=== PATIENT | male | born 1990 | race Hispanic/Latino ===

== ENCOUNTER 2017-09-11 20:19 | Emergency (ER) | payer SELFPAY ==
[2017-09-11] MEDS ORDERED: HYDROcodone/Acetaminophen 10/325 mg Tablet ONE (21:00)
--- NOTE | 2017-09-11 22:03 | RAD ---
LEFT KNEE FOUR VIEWS: HISTORY: Pain. Swelling. COMPARISON: None. FINDINGS: There is prepatellar soft tissue swelling. No fracture. No malalignment. No joint effusion. Joint spaces are preserved. IMPRESSION: Soft tissue swelling. POS: [facility]
== END 2017-09-11 21:17 | disposition home or self-care (01) ==
LOC: ERS 20:19
DX: M23.92 Unspecified internal derangement of left knee (principal)

== ENCOUNTER 2019-10-12 02:06 | Emergency (ER) | payer SELFPAY ==
[2019-10-12] MEDS ORDERED: Cyclobenzaprine 10 MG TAB ONE ×2 (02:39→02:40)
[2019-10-12 02:46] LABS: Bacteria/HPF None Seen HPF (None Seen); Bilirubin Negative (Negative); Blood, Urine 2+ (Negative); Clarity Clear (Clear); Glucose, Urine (Dipstick) Normal (Negative); Leukocyte Negative Leu/uL (Negative); Nitrite Negative (Negative); Protein, Urine (Dipstick) 20 mg/dL (Neg-Trace); Squamous Epithelial 0-3 HPF (0-3); WBC/HPF 0-3 HPF (0-3)
[2019-10-12] MEDS ORDERED: Ketorolac Tromethamine 60 MG/2 ML VIAL ONE (03:27)
--- NOTE | 2019-10-12 07:35 | RAD ---
XR Chest Pa Lat STANDARD HISTORY: Left upper quadrant pain COMPARISON: None FINDINGS: The heart size is borderline. There is airspace disease in left lung base with accompanying small effusion. IMPRESSION: Left basilar pneumonia.
--- NOTE | 2019-10-12 08:16 | CT ---
PRELIMINARY REPORT/[facility]/AFTER HOURS PROCEDURE CT STONE PROTOCOL: HISTORY: C/O LEFT SIDED ABDOMINAL PAIN COMPARISON: None. FINDINGS: Left basilar opacification, incompletely visualized. No acute abnormality of the liver or pancreas. The spleen is normal. No adrenal nodule. No renal or ureteral stone. No hydronephrosis or hydroureter. Stool within the colon. No bowel obstruction. No mural thickening. No large focal fluid collections. No acute osseous abnormality. IMPRESSION: 1. Incompletely visualized left basilar opacification. May represent left lower lobe pneumonia and/ or pleural effusion, amongst other etiologies. Recommend further evaluation with chest radiograph or chest CT. 2. No acute intra-abdominal pathology. ELECTRONICALLY SIGNED BY: Rudy Caraballo MD Oct 12, 2019 3:51:04 AM [employer] This report is intended for review by the ordering physician only, in accordance of law. If you recei ve this report in error, please call [facility] at [phone]. FINAL REPORT CT ABDOMEN AND PELVIS WITHOUT CONTRAST: I agree with the preliminary report given by Dr. Clifford Caraballo of [facility]. CODE QA POS: [facility]
== END 2019-10-12 04:45 | disposition home or self-care (01) ==
LOC: ERS 02:06
DX: J18.9 Pneumonia, unspecified organism (principal); M54.5 Low back pain; M54.6 Pain in thoracic spine
CPT/HCPCS: 71046; 74176; 81003; 81015; 96372; J1885

== ENCOUNTER 2019-11-03 15:02 | Inpatient (IN) | payer SELFPAY ==
[~2019-11-03 15:02] MED LIST: Iopamidol-370 76% 500 ML 1 ML ONE
--- NOTE | 2019-11-03 15:55 | RAD ---
EXAM: Single view of the chest HISTORY: Cough COMPARISON: 10/12/2019 FINDINGS: Single view of the chest shows a normal sized cardiomediastinal silhouette. There is a mode rate left pleural effusion which appears partially loculated along the left lateral chest wall. Adjacent atelectasis is seen. The bones are unremarkable. IMPRESSION: Left pleural effusion which is partially loculated
[2019-11-03 16:46] LABS: #Lymphocytes 2.3 thou/uL (1.20-3.40); #Monocytes 1.3 thou/uL (0.11-0.59); #Neutrophils 14.1 thou/uL (1.40-6.50); %Basophils 0.2 % (0.0-1.0); %Eosinophils 0.1 % (0.0-10.0); %Lymphocytes 13.1 % (21.0-51.0); %Monocytes 7.3 % (0.0-10.0); %Neutrophils 79.3 % (42.0-75.0); Hemoglobin 13.4 g/dL (14.0-18.0); Mean Corpuscular Hemoglobin 27.9 pg (27.0-31.0); Mean Corpuscular Volume 87.1 fL (78.0-98.0); Mean Platelet Volume 6.8 fL (7.4-10.4); Platelet Count 504 thou/uL (130-400); RBC Distribution Width 12.3 % (11.5-14.5); Red Blood Cell (RBC) Count 4.79 mill/uL (4.70-6.10); White Blood Cell (WBC) Count 17.7 thou/uL (4.8-10.8)
[2019-11-03] MEDS ORDERED: Azithromycin 500 MG VIAL ONE (17:11)
[2019-11-03] MEDS ORDERED: Acetaminophen 500 MG TAB ONE (17:11)
[2019-11-03] MEDS ORDERED: cefTRIAXone\\ROCEPHIN 2 GM VIAL ONE (17:11)
[2019-11-03 17:12] LABS: ALT (SGPT) 113 U/L (8-55); AST (SGOT) 47 U/L (5-34); Alkaline Phosphatase 485 U/L (40-110); Anion Gap 13 mmol/L (10-20); BUN (Urea Nitrogen) 9 mg/dL (8.9-20.6); Bilirubin, Total 1.7 mg/dL (0.2-1.2); Calc. Creatinine Clearance 0 mL/min (70-130); Calcium 9.4 mg/dL (7.8-10.44); Carbon Dioxide 27 mmol/L (22-29); Chloride 100 mmol/L (98-107); Estimated GFR-MDRD 86; Globulin 3.7 g/dL (2.4-3.5); Glucose 111 mg/dL (70-105); Potassium 4.3 mmol/L (3.5-5.1); Protein, Total 7.7 g/dL (6.0-8.3); Sodium 136 mmol/L (136-145)
--- NOTE | 2019-11-03 17:38 | CT ---
CT OF CHEST PERFORMED WITH CONTRAST ENHANCEMENT: History: Left sided empyema. FINDINGS: A loculated pleural effusion is seen along the left lateral chest wall. There is some associated pare nchymal change which is felt to be more related to atelectatic type change, slightly more prominent w ithin the left lower lobe. The right lung is clear. No cavitary changes. No significant mediastinal a denopathy. There are small prevascular nodes which in a patient of this age with these findings are f elt to be most likely be reactive. Visualized liver parenchyma shows no focal findings. Spleen is within normal limits of size. IMPRESSION: Loculated left sided pleural effusion loculated along the left lateral chest wall. POS: [facility]
[2019-11-03] MEDS ORDERED: metroNIDAZOLE 500 MG in Premix Bag 1 BAG IVPB SCH (20:30)
[2019-11-03] MEDS ORDERED: metroNIDAZOLE 500 MG/100 ML BAG ONE (20:32)
--- NOTE | 2019-11-03 21:13 | HP ---
PRIMARY CARE PHYSICIAN: Dimitry Alex. CHIEF COMPLAINT: Chest pain on the right side and back. HISTORY OF PRESENT ILLNESS: This is a 29-year-old male who was seen 22 days ago for some left flank pain. He had a CT scan done at that time that showed a left lower lobe pneumonia and a small effusion. He was given a course of azithromycin. The patient has had persistence of symptoms, they have gotten worse recently. He has had some cough as well. He is not certain if he has had fevers. The patient presented to the emergency room again today. He was noted to be tachycardic and febrile to 103 without any tachypnea and saturating well on room air. He had a chest x-ray and then a CT scan of the chest that showed a loculated empyema and left side pneumonia, and also had an elevated white blood cell count. He is being admitted for loculated empyema. He was given azithromycin and Rocephin in the emergency room along with IV fluids and acetaminophen, is feeling much more comfortable now. PAST MEDICAL HISTORY: None. PAST SURGICAL HISTORY: None. SOCIAL HISTORY: The patient drinks socially. No tobacco or alcohol use. He lives with his significant other, her name is La Juárez. FAMILY HISTORY: No known family medical history. ALLERGIES: NO KNOWN DRUG ALLERGIES. CURRENT MEDICATIONS: None. REVIEW OF SYSTEMS: CONSTITUTIONAL: He felt feverish, but was not certain if he was getting fevers and also felt some chills. EYES: No double vision or blurred vision. ENT: He has had no drainage from his nose. No sore throat. CARDIOVASCULAR: The patient has chest pain as per HPI. No palpitations or racing heart. PULMONARY: He has had some mild cough, nonproductive and the pain as per the HPI. No shortness of breath or wheezing. GASTROINTESTINAL: No abdominal pain. He has had some nausea and vomiting, vomited twice yesterday and twice today. No diarrhea or constipation. GENITOURINARY: No dysuria or hematuria. MUSCULOSKELETAL: No muscle aches or joint pains besides what is listed in HPI. SKIN: No rashes or other lesions. NEUROLOGIC: No numbness, tingling, or focal weakness. PHYSICAL EXAMINATION: VITAL SIGNS: Blood pressure 108/64, pulse 114, respirations 20, temperature 101.1, O2 saturation 98% on room air. GENERAL: This is a well-developed, well-nourished male, in no acute distress. HEENT: Pupils equal, round, and reactive to light. Oropharynx clear without lesions, erythema, or exudate. NECK: Supple. No lymphadenopathy. No thyroid nodules or enlargement. No JVD. HEART: Mildly tachycardic, regular rhythm. No murmurs, rubs, or gallops. LUNGS: The patient has some decreased breath sounds at the left base, otherwise clear lung pena. ABDOMEN: Soft, nontender to palpation. Normoactive bowel sounds. No hepatosplenomegaly or other masses. EXTREMITIES: No clubbing, cyanosis, or edema. SKIN: No rashes or lesions noted. NEUROLOGIC: The patient is able to move all extremities with equal strength. No facial droop. PSYCHIATRIC: Alert and oriented x3. Normal mood and affect. LABORATORY DATA: CBC with a white blood cell count of 17,000; hemoglobin 13.4, hematocrit 41.7, platelet count 504. Complete metabolic panel is notable for glucose of 111, total bilirubin of 1.4, AST of 47, ALT of 113, alkaline phosphatase of 485. The rest was normal. Lactic acid was negative at 1.0. IMAGING STUDIES: Chest x-ray, I did review the chest x-ray done in the emergency room along with the radiologist's report. It does show a left lower lobe infiltrate with a left pleural effusion that is partially loculated along the left lateral chest wall. CT of the chest with contrast shows a loculated left-sided pleural effusion, loculated on the left lateral chest wall. ASSESSMENT: 1. Loculated empyema with sepsis. The patient has received IV fluids in the emergency room, is doing much better and still remains somewhat febrile and tachycardic. We will continue IV fluid resuscitation. He received Rocephin and azithromycin in the emergency room. He already had a Z-Tip earlier in the course of this illness without resolution, so we will discontinue the Rocephin for now and had metronidazole to cover anaerobics. I did consult Dr. Pryor, CT Surgery, and he will evaluate the patient and likely take him back for decortication tomorrow morning. We will also have Pulmonology consult as well. 2. Elevated liver function tests possibly due to alcohol intake. We will get an ultrasound of the liver and we will observe the patient closely for any evidence of alcohol withdrawals. 3. Gastrointestinal prophylaxis. Put the patient on Pepcid twice a day. 4. Deep venous thrombosis prophylaxis. Put the patient on subcu Lovenox. 5. Code status. The patient is a full code. Job ID: [id number] MTDD
[2019-11-03] MEDS ORDERED: Sodium Chloride 0.9% 1,000 ML IV SCH (23:31)
[2019-11-03] MEDS ORDERED: Ondansetron PF 4 MG/2 ML Vial IVP PRN ×2 (23:31→23:35)
[2019-11-03] MEDS ORDERED: HYDROcodone/Acetaminophen 5/325 mg Tablet PO PRN ×4 (23:31→23:35)
[2019-11-03] MEDS ORDERED: Ondansetron ODT 4 MG TAB SL PRN (23:31)
[2019-11-03] MEDS ORDERED: Acetaminophen 325 MG TAB PO PRN ×2 (23:31→23:35)
[2019-11-03] MEDS ORDERED: Ondansetron ODT 4 MG TAB PO PRN (23:35)
[2019-11-03] MEDS ORDERED: Guaifenesin DM 100-10/5 ML UDCUP PO PRN (23:35)
[2019-11-03] MEDS ORDERED: Senokot S 8.6-50 MG TAB PO PRN (23:35)
[2019-11-03] MEDS ORDERED: Acetaminophen 650 MG Suppository PR PRN (23:35)
[2019-11-03] MEDS ORDERED: Famotidine 20 MG TAB PO SCH (23:45)
[2019-11-04] MEDS: Sodium Chloride 0.9% 1,000 ML IV SCH ×3 (00:22→16:20)
[2019-11-04 00:38] VITALS: BMI 29.2
[2019-11-04] MEDS: metroNIDAZOLE 500 MG in Premix Bag 1 BAG IVPB SCH ×3 (03:24→21:26)
--- NOTE | 2019-11-04 04:15 | CON ---
DATE OF CONSULTATION: HISTORY OF PRESENT ILLNESS: This is a 29-year-old gentleman, who was seen in the ER about 3 weeks ago complaining of left posterior back and flank pain. He was diagnosed as having a pneumonia at that time and treated with Zithromax. He has failed to improve and has a cough, fever, pain in the left side of his chest, and anorexia. He underwent CT scan, showed a loculated left pleural effusion with an elevated hemidiaphragm. White count is elevated. Platelet count is elevated at 500,000. Hemoglobin is 13. PAST MEDICAL HISTORY: Negative. PAST SURGICAL HISTORY: Negative. SOCIAL HISTORY: He is accompanied by his girlfriend. 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 ALLERGIES: HE HAS NO KNOWN ALLERGIES. MEDICATIONS: He takes no medications at home presently. PHYSICAL EXAMINATION: GENERAL AND VITAL SIGNS: He is somewhat lethargic gentleman in no distress with a resting heart rate of 110. Breathing comfortably. Febrile at about 100 degrees, 103 earlier. LUNGS: Diminished breath sounds bilaterally. CARDIAC: Exam tachycardia with no murmurs. ABDOMEN: Soft, nontender. EXTREMITIES: No peripheral edema. PLAN: At this time is for thoracoscopy/thoracotomy tomorrow morning to evacuate the loculated empyema. Informed consent has been obtained. Job ID: [id number]
[2019-11-04 05:49] LABS: #Basophils 0.1 thou/uL (0.0-0.2); #Eosinphils 0.1 thou/uL (0.0-0.7); #Lymphocytes 1.7 thou/uL (1.20-3.40); #Monocytes 1.2 thou/uL (0.11-0.59); #Neutrophils 10.1 thou/uL (1.40-6.50); %Basophils 0.4 % (0.0-1.0); %Eosinophils 0.4 % (0.0-10.0); %Lymphocytes 13.2 % (21.0-51.0); %Neutrophils 76.9 % (42.0-75.0); Hemoglobin 12.2 g/dL (14.0-18.0); Mean Corpuscular HGB CONC 31.9 g/dL (32.0-36.0); Mean Corpuscular Hemoglobin 27.8 pg (27.0-31.0); Mean Corpuscular Volume 87.2 fL (78.0-98.0); Mean Platelet Volume 7.1 fL (7.4-10.4); Platelet Count 467 thou/uL (130-400); RBC Distribution Width 12.4 % (11.5-14.5); White Blood Cell (WBC) Count 13.1 thou/uL (4.8-10.8)
[2019-11-04 06:06] LABS: Anion Gap 12 mmol/L (10-20); BUN (Urea Nitrogen) 7 mg/dL (8.9-20.6); Calc. Creatinine Clearance 164 mL/min (70-130); Calcium 8.6 mg/dL (7.8-10.44); Carbon Dioxide 24 mmol/L (22-29); Chloride 102 mmol/L (98-107); Estimated GFR-MDRD Greater than 90; Glucose 99 mg/dL (70-105); Potassium 3.9 mmol/L (3.5-5.1); Sodium 134 mmol/L (136-145)
--- NOTE | 2019-11-04 07:57 | ULT ---
SONOGRAM RIGHT UPPER QUADRANT: HISTORY: Right upper quadrant pain. Abnormal liver function tests. FINDINGS: Gallbladder has a normal appearance. No stones visible. Common duct is 0.2 cm. Liver unremarkable without focal mass or intrahepatic biliary dilatation. No free fluid. IMPRESSION: Normal exam. POS: [facility]
[2019-11-04] MEDS: Famotidine 20 MG TAB PO SCH ×2 (08:20→21:25)
[2019-11-04] MEDS ORDERED: Fentanyl 250 MCG/5 ML VIAL ONE (08:37)
[2019-11-04] MEDS ORDERED: FLU VACC QS2019-20(6MOS UP)/PF 60 MCG/0.5 ML SYRINGE IM ONE (09:00)
[2019-11-04] MEDS ORDERED: Lidocaine 1% PF 5 ML VIAL ONE ×2 (11:26)
[2019-11-04] MEDS ORDERED: PHENYLEPHRINE-NS 100 MCG/ML 10 ML SYRINGE ONE (11:26)
[2019-11-04] MEDS ORDERED: Rocuronium Bromide 10 MG/ML (10ML VIAL) ONE (11:26)
[2019-11-04] MEDS ORDERED: Dexamethasone 20 MG/5 ML VIAL ONE (11:26)
[2019-11-04] MEDS ORDERED: PROPOFOL 200 MG/20 ML VIAL ONE (11:26)
[2019-11-04] MEDS ORDERED: Ondansetron PF 4 MG/2 ML Vial ONE (11:26)
[2019-11-04] MEDS ORDERED: Glycopyrrolate 0.2 MG/ML 5 ML SYRINGE ONE (11:26)
[2019-11-04] MEDS ORDERED: HYDROmorphone 2 MG/ML VIAL ONE (13:28)
[2019-11-04] MEDS ORDERED: Phenylephrine 10 MG/NS 250 ML 250 ML IVPB PRN (14:09)
[2019-11-04] MEDS ORDERED: Promethazine HCl 25 MG/ML VIAL IM PRN ×3 (14:09→14:30)
[2019-11-04] MEDS ORDERED: HYDROcodone/Acetaminophen 5/325 mg Tablet PO PRN ×2 (14:09)
[2019-11-04] MEDS ORDERED: Ondansetron PF 4 MG/2 ML Vial IVP PRN ×2 (14:09→14:30)
[2019-11-04] MEDS ORDERED: diphenhydrAMINE 25 MG CAP PO PRN (14:30)
[2019-11-04] MEDS ORDERED: Communication Order-Pharmacy FS SCH (14:30)
[2019-11-04] MEDS ORDERED: diphenhydrAMINE 50 MG/ML VIAL IM PRN (14:30)
[2019-11-04] MEDS ORDERED: Naloxone HCl 0.4 mg/ml Vial IV PRN (14:30)
[2019-11-04] MEDS ORDERED: Zolpidem Tartrate 5 MG TAB PO PRN (14:30)
[2019-11-04] MEDS ORDERED: diphenhydrAMINE 50 MG/ML VIAL IVP PRN (14:30)
[2019-11-04] MEDS ORDERED: Ondansetron HCl/PF 4 MG/2 ML Vial IVP PRN (14:30)
[2019-11-04] MEDS ORDERED: Promethazine HCl 25 MG/ML VIAL SLOW IVP PRN (14:30)
[2019-11-04] MEDS ORDERED: Fentanyl 100 MCG/2 ML VIAL ONE ×2 (14:39→15:02)
[2019-11-04] MEDS ORDERED: metroNIDAZOLE 500 MG/100 ML BAG ONE (14:53)
--- NOTE | 2019-11-04 15:00 | RAD ---
EXAM: XR Chest 1 View Portable PROVIDED CLINICAL HISTORY: Post thoracotomy COMPARISON: 11/03/2019 FINDINGS: 2 left-sided thoracostomy tubes are noted in place with the tip of each thoracostomy tube overlying t he medial aspect of the mid and upper lung zones. Pleural-based density along the left hemithorax is seen but is smaller in size compared to prior study. There is volume loss present in the left parul thorax. Mild atelectasis seen at the right lung base. The right lung otherwise appears clear. The cardiac silhouette and pulmonary vasculature are within normal limits. No other interval change. IMPRESSION: 1. Interval placement left-sided thoracostomy tubes with decrease in size of left pleural fluid colle ction. Parenchymal densities left lung are likely attributable to atelectasis.
--- NOTE | 2019-11-04 16:29 | CON ---
DATE OF CONSULTATION: HISTORY OF PRESENT ILLNESS: Lex Penn is a 29-year-old who speaks no Tajik. History is obtained by talking to the patient with the help of a Kazakh-speaking nurse in the ICU. He is status post decortication. He was in the ER on October 16 with a diagnosis of flank pain and left-sided chest pain. He was given some ibuprofen. He then stated at that time he drank socially, did not smoke, did not use any drugs. showed a left basal opacification. Diagnosis of pneumonia was made. He was given Zithromax and discharged home. He now presents with worsening pain and discomfort. CAT scan clearly shows no evidence of loculated pleural effusion. Decortication revealed foul smelling purulent drainage. He is having some pain, but no shortness of breath. PAST MEDICAL HISTORY: Remarkable for diabetes and hypertension. PAST SURGICAL HISTORY: None. CHRONIC MEDICATION: None. REVIEW OF SYSTEMS: Negative. PHYSICAL EXAMINATION: VITAL SIGNS: Postop sats are 95% on 2 L, temperature 100.1, pulse 114, and blood pressure 105/60. CHEST: Decreased breath sounds without any wheezing. CARDIAC: Normal S1-S2. No gallops. ABDOMEN: Soft. LABORATORY DATA: White count 13,000, H and H of 12 and 38, and platelet count is 467. Lytes are normal. Sodium 136. AST elevated 47, ALT 113, and alkaline phosphatase elevated. Influenza was negative. IMPRESSION: Empyema, status post decortication, probably anaerobic. I have added Zosyn to his present regime. Early ambulation. Supportive care, PT. We will follow. Consultation note, 70 minutes, 50% direct patient care. Job ID: [id number]
[2019-11-04] MEDS ORDERED: cefTRIAXone\\ROCEPHIN 2 GM in Sodium Chloride 0.9% 100 ML IVPB SCH (17:00)
[2019-11-04] MEDS: Piperacillin/Tazobactam 4.5 GM in Sodium Chloride 0.9% 100 ML IVPB SCH (18:01)
--- NOTE | 2019-11-04 18:34 | PDOC.HOSPP ---
- Subjective Subjective: Spoke to patient via [employer] tm1 developer. He is having some post-op pain. - Objective Vital Signs & Weight: Vital Signs (12 hours) Temp Pulse Resp BP Pulse Ox 11/04/19 08:00 95 11/04/19 07:12 100.1 F H 100 14 105/63 95 Weight Weight 181 lb 7 oz Result Diagrams: 11/04/19 05:05 11/04/19 05:05 Hospitalist ROS - Medication Medications: Active Medications Generic Name Dose Route Start Last Admin Trade Name Freq PRN Reason Stop Dose Admin Famotidine 20 mg 11/04/19 09:00 11/04/19 08:20 Pepcid PO Not Given BID LUIZA Ceftriaxone Sodium 2 gm/ 100 mls @ 200 mls/hr 11/04/19 17:00 11/04/19 16:59 Sodium Chloride IVPB 100 mls Q24HR LUIZA Administration Metronidazole 500 mg/ Device 100 mls @ 100 mls/hr 11/04/19 04:00 11/04/19 16: 03 IVPB Not Given 0400,1200,2000 LUIZA Sodium Chloride 1,000 mls @ 75 mls/hr 11/04/19 14:09 11/04/19 16:04 Normal Saline 0.9% IV 1,000 mls .[id number] LUIZA Administration Piperacillin Sod/Tazobactam 100 mls @ 200 mls/hr 11/04/19 18:00 11/04/19 18: 01 Sod 4.5 gm/ Sodium Chloride IVPB 100 mls Q6HR LUIZA Administration - Exam General Appearance: NAD, awake alert Heart: RRR, no murmur, no gallops, no rubs, normal peripheral pulses Respiratory: CTAB, no wheezes, no rales, no ronchi, normal chest expansion, no tachypnea, normal percussion Respiratory - other findings: Left chest tube. Gastrointestinal: soft, non-tender, non-distended, normal bowel sounds, no palpable masses, no hepatomegaly, no splenomegaly, no bruit Extremities: no cyanosis, no clubbing, no edema Skin: normal turgor, no lesions, no rashes Musculoskeletal: normal tone Psychiatric: normal affect, normal behavior, A&O x 3 Hosp A/P (1) Empyema Code(s): J86.9 - PYOTHORAX WITHOUT FISTULA Status: Acute (2) Transaminitis Code(s): R74.0 - NONSPEC ELEV OF LEVELS OF TRANSAMNS & LACTIC ACID DEHYDRGNSE Status: Acute - Plan Status post thoracotomy for empyema. Spoke with Dr. Pryor. Has gram negative rods. Continue IV abx, chest drain.
[2019-11-05] MEDS: Piperacillin/Tazobactam 4.5 GM in Sodium Chloride 0.9% 100 ML IVPB SCH ×5 (00:33→23:24)
[2019-11-05] MEDS: Sodium Chloride 0.9% 1,000 ML IV SCH ×2 (03:41→13:11)
[2019-11-05] MEDS: metroNIDAZOLE 500 MG in Premix Bag 1 BAG IVPB SCH ×3 (03:41→20:18)
[2019-11-05 03:42] LABS: #Eosinphils 0.1 thou/uL (0.0-0.7); #Lymphocytes 1.7 thou/uL (1.20-3.40); #Monocytes 1.1 thou/uL (0.11-0.59); #Neutrophils 10.9 thou/uL (1.40-6.50); %Basophils 0.2 % (0.0-1.0); %Eosinophils 0.5 % (0.0-10.0); %Monocytes 8.1 % (0.0-10.0); %Neutrophils 79.3 % (42.0-75.0); Hemoglobin 12.1 g/dL (14.0-18.0); Mean Corpuscular HGB CONC 32.1 g/dL (32.0-36.0); Mean Corpuscular Hemoglobin 28.5 pg (27.0-31.0); Mean Corpuscular Volume 88.8 fL (78.0-98.0); Mean Platelet Volume 6.9 fL (7.4-10.4); Platelet Count 453 thou/uL (130-400); RBC Distribution Width 12.3 % (11.5-14.5); Red Blood Cell (RBC) Count 4.22 mill/uL (4.70-6.10); White Blood Cell (WBC) Count 13.8 thou/uL (4.8-10.8)
[2019-11-05 04:14] LABS: Anion Gap 13 mmol/L (10-20); BUN (Urea Nitrogen) 8 mg/dL (8.9-20.6); Calc. Creatinine Clearance 162 mL/min (70-130); Calcium 8.4 mg/dL (7.8-10.44); Carbon Dioxide 24 mmol/L (22-29); Chloride 102 mmol/L (98-107); Estimated GFR-MDRD Greater than 90; Glucose 109 mg/dL (70-105); Potassium 4.1 mmol/L (3.5-5.1); Sodium 135 mmol/L (136-145)
[2019-11-05] MEDS: fentaNYL Citrate/PF 2,000 MCG in Sodium Chloride 0.9% 60 ML IV PRN ×2 (06:22→19:41)
--- NOTE | 2019-11-05 07:57 | OP ---
DATE OF PROCEDURE: 11/04/2019 PREOPERATIVE DIAGNOSIS: Empyema. POSTOPERATIVE DIAGNOSIS: Empyema with trapped lung, upper and lower lobes. PROCEDURE PERFORMED: Left thoracoscopy converted to a left posterolateral muscle sparing thoracotomy with total lung decortication. DESCRIPTION OF PROCEDURE: After adequate double-lumen endotracheal anesthesia had been obtained, the patient was placed in the right lateral decubitus position. He was prepped and draped and the scope was inserted. After entering the chest through a port site, foul-smelling purulent material was removed. Following which, a second port site was made and instrumentation allowed removal of a large amount of coagulum. Following this, the lung would not inflate with positive pressure ventilation and a posterolateral probably 5th or 6th intercostal space muscle sparing incision was carried out. After rotating the latissimus anteriorly, the chest was entered. Retractor was placed and tedious dissection was then carried out alternating between the upper and lower lobe removing peel. After considerable amount of peel and time had been spent with about 400 mL blood loss, there was much improvement in the ventilation and a pair of chest tubes were then placed right angle and straight. The chest was then irrigated with several liters of saline. Following which, the ribs were reapproximated with double-stranded chromic sutures. Muscle layers loosely reapproximated and the skin closed in layers. The patient was to be taken to the recovery room in guarded condition. Job ID: [id number]
[2019-11-05] MEDS: Famotidine 20 MG TAB PO SCH ×2 (08:44→20:18)
--- NOTE | 2019-11-05 09:01 | RAD ---
CHEST 1 VIEW: INDICATION: History of thoracotomy. COMPARISON: Prior exam dated 11/04/2019. FINDINGS: Left side thoracostomy tubes are stable-appearing. Mild cardiomegaly persists. Airspace disease of the left lung is stable. No pneumothorax is evident. Osseous structures are similar-appearing. IMPRESSION: Stable exam. POS: [facility]
--- NOTE | 2019-11-05 09:46 | PRG ---
DATE OF SERVICE: 11/05/2019 SUBJECTIVE: This morning, he is awake, responsive. Still some pain, but no shortness of breath. OBJECTIVE: VITAL SIGNS: His maximum temperature was 98, pulse 120, blood pressure 177/74, respiratory rate 18, and sats 90%. CHEST: Decreased breath sounds. Left lung, no wheezing. CARDIAC: Normal S1 and S2. No gallops. ABDOMEN: No masses. LABORATORY DATA: White count 13,000. Lytes are normal. IMPRESSION: Left side empyema, status post decortication. PLAN: Continue Zosyn. Await cultures. PT, supportive care. We will follow. Job ID: [id number]
[2019-11-05] MEDS: Acetaminophen 500 MG TAB PO SCH ×2 (17:53→23:24)
[2019-11-05] MEDS: Ketorolac Tromethamine 30 MG/ML VIAL IVP SCH ×2 (17:53→23:23)
--- NOTE | 2019-11-05 21:55 | PDOC.HOSPP ---
- Subjective Subjective: Doing ok. Pain is improved. 11/17 today. - Objective Vital Signs & Weight: Vital Signs (12 hours) Temp Pulse Pulse BP BP Pulse Ox 11/05/19 20:00 97 11/05/19 19:00 99.1 F 11/05/19 16:00 99.5 F 11/05/19 14:05 128 H 124 H 109/71 121/76 11/05/19 12:00 99.4 F Weight Weight 180 lb 12.465 oz Most Recent Monitor Data Heart Rate from ECG 95 NIBP 102/68 NIBP BP-Mean 79 Respiration from ECG 22 SpO2 97 I&O: 11/04/19 11/05/19 11/06/19 06:59 06:59 06:59 Intake Total 1765 1792 Output Total 1650 720 Balance 115 1072 Result Diagrams: 11/05/19 03:19 11/05/19 03:19 Hospitalist ROS - Medication Medications: Active Medications Generic Name Dose Route Start Last Admin Trade Name Freq PRN Reason Stop Dose Admin Acetaminophen 1,000 mg 11/05/19 18:00 11/05/19 17:53 Tylenol PO 11/08/19 12:01 1,000 mg Q6HR LUIZA Administration Famotidine 20 mg 11/04/19 09:00 11/05/19 20:18 Pepcid PO 20 mg BID LUIZA Administration Metronidazole 500 mg/ Device 100 mls @ 100 mls/hr 11/04/19 04:00 11/05/19 20: 18 IVPB 100 mls 0400,1200,2000 LUIZA Administration Fentanyl Citrate 2,000 mcg/ 100 mls @ 0 mls/hr 11/04/19 14:30 11/05/19 19:41 Sodium Chloride IV 100 mls INF PRN Administration Pain As Directed Piperacillin Sod/Tazobactam 100 mls @ 200 mls/hr 11/04/19 18:00 11/05/19 17: 52 Sod 4.5 gm/ Sodium Chloride IVPB 100 mls Q6HR LUIZA Administration Sodium Chloride 1,000 mls @ 25 mls/hr 11/05/19 13:00 11/05/19 13:11 Normal Saline 0.9% IV 1,000 mls .Q24H LUIZA Administration Ketorolac Tromethamine 15 mg 11/05/19 18:00 11/05/19 17:53 Toradol IVP 11/10/19 18:01 15 mg Q6HR LUIZA Administration - Exam General Appearance: NAD, awake alert Neck: supple, symmetric, no JVD, no thyromegaly, no lymphadenopathy, no carotid bruit Heart: RRR, no murmur, no gallops, no rubs, normal peripheral pulses Respiratory: CTAB, no wheezes, no ronchi, no tachypnea Respiratory - other findings: LLE rales. Gastrointestinal: soft, non-tender, non-distended, normal bowel sounds, no palpable masses, no hepatomegaly, no splenomegaly, no bruit Skin: normal turgor Musculoskeletal: normal tone, normal strength, no muscle wasting Psychiatric: normal affect, normal behavior, A&O x 3 Hosp A/P (1) Empyema Code(s): J86.9 - PYOTHORAX WITHOUT FISTULA Status: Acute (2) Transaminitis Code(s): R74.0 - NONSPEC ELEV OF LEVELS OF TRANSAMNS & LACTIC ACID DEHYDRGNSE Status: Acute - Plan Status post thoracotomy for empyema. Has gram negative rods in pleural fluid. Zosyn and Flagyl. Abd US negative. Continue IV abx, chest drain.
[2019-11-06] MEDS: metroNIDAZOLE 500 MG in Premix Bag 1 BAG IVPB SCH (04:46)
[2019-11-06] MEDS: Ketorolac Tromethamine 30 MG/ML VIAL IVP SCH ×4 (06:01→23:47)
[2019-11-06] MEDS: Acetaminophen 500 MG TAB PO SCH ×2 (06:02→11:55)
[2019-11-06] MEDS: Piperacillin/Tazobactam 4.5 GM in Sodium Chloride 0.9% 100 ML IVPB SCH ×4 (06:02→23:47)
[2019-11-06] MEDS: Famotidine 20 MG TAB PO SCH ×2 (08:13→19:58)
--- NOTE | 2019-11-06 08:27 | RAD ---
Chest AP view INDICATION: History of decortication COMPARISON: Prior exam dated November 05, 2019 FINDINGS: Lungs:Pleural parenchymal opacity affecting the left hemithorax, predominantly left basilar region is stable. Left-sided thoracostomy tubes are stable. Right lung is clear. Cardiac silhouette:The cardiomediastinal silhouette appears within normal limits. Pulmonary vasculature:Normal Pleural spaces:Left sided pleural opacity is stable. No pneumothorax. Upper abdomen:No abnormality seen. Osseous structures: No acute osseous abnormality. Additional findings:None. IMPRESSION: Stable exam
--- NOTE | 2019-11-06 08:42 | PRG ---
DATE OF SERVICE: 11/06/2019 SUBJECTIVE: Lex Penn is a 29-year-old gentleman, this morning, still having some pain. Less short of breath. OBJECTIVE: VITAL SIGNS: Temperature 97.9, sats 97% on 2 L, blood pressure 127/ 85, respiratory rate 18. CHEST: Decreased breath sounds left. Right lung unremarkable. CARDIAC: Normal S1 and S2. No gallops. ABDOMEN: No masses. IMP .. left chest empyema, status post decortication. Continue Zosyn. Supportive care. PT. Transfer to surgical floor. We will follow. Job ID: [id number] MTDD
[2019-11-06] MEDS: Enoxaparin Sodium 40 MG/0.4 ML SYRINGE SC SCH (09:45)
[2019-11-06] MEDS: Sodium Chloride 0.9% 1,000 ML IV SCH (13:00)
--- NOTE | 2019-11-06 13:54 | PDOC.GSPN ---
Surgery Progress Note: Subj - Subjective Patient reports: no new complaints (Pt was laying in bed resting upon entering the room. Appeared comfortable. Communcation was limited was language barrier. No hygiene coordinator present.), feels better, tolerating liquids well, pain is less Surgery Progress Note: Obj - Vital signs Vital signs: Vital Signs - Most Recent Temp Pulse Resp BP Pulse Ox 97.8 F 81 14 107/70 99 11/06/19 12:00 11/06/19 08:40 11/04/19 07:12 11/06/19 08:40 11/06/19 08:40 - Physical Exam General: no distress, well developed, well nourished Neck: trachea midline Cardiovascular: regular rate and rhythm Respiratory: breath sounds present, other (Decreased lung sounds on left) Abdomen: soft, nondistended Wound: healing well Surgery Progress Note: Results - Labs Result Diagrams: 11/05/19 03:19 11/05/19 03:19 Surgery Progress Note: A/P - Problem (1) Empyema Current Visit: Yes Code(s): J86.9 - PYOTHORAX WITHOUT FISTULA Status: Acute Assessment and Plan: Patient appears better and in stable condition. - Plan Plan: Plan to continue current medications.
[2019-11-06] MEDS ORDERED: HYDROcodone/Acetaminophen 5/325 mg Tablet PO PRN ×2 (14:33)
[2019-11-06] MEDS ORDERED: Polyethylene Glycol 3350 17 GM Packet PO SCH (15:00)
[2019-11-06] MEDS ORDERED: Gabapentin 300 MG CAP PO SCH (15:00)
--- NOTE | 2019-11-06 17:07 | PDOC.HOSPP ---
- Subjective Subjective: Doing well. Denies pain. Breathing well. Ambulating. - Objective Vital Signs & Weight: Vital Signs (12 hours) Temp Pulse Pulse BP BP Pulse Ox Pulse Ox 11/06/19 12:00 97.8 F 11/06/19 08:40 81 100 107/70 107/65 99 11/06/19 08:00 97.9 F 97 Pulse Ox 11/06/19 12:00 11/06/19 08:40 98 11/06/19 08:00 Weight Weight 183 lb 10.321 oz Most Recent Monitor Data Heart Rate from ECG 87 NIBP 103/68 NIBP BP-Mean 79 Respiration from ECG 19 SpO2 97 I&O: 11/05/19 11/06/19 11/07/19 06:59 06:59 06:59 Intake Total 1765 2518 440 Output Total 1650 5765 720 Balance 115 843 -280 Result Diagrams: 11/05/19 03:19 11/05/19 03:19 Hospitalist ROS - Medication Medications: Active Medications Generic Name Dose Route Start Last Admin Trade Name Dereck PRN Reason Stop Dose Admin Enoxaparin Sodium 40 mg 11/06/19 09:00 11/06/19 09:45 Lovenox SC 40 mg 0900 LUIZA Administration Famotidine 20 mg 11/04/19 09:00 11/06/19 08:13 Pepcid PO 20 mg BID LUIZA Administration Piperacillin Sod/Tazobactam 100 mls @ 200 mls/hr 11/04/19 18:00 11/06/19 11: 54 Sod 4.5 gm/ Sodium Chloride IVPB 100 mls Q6HR LUIZA Administration Ketorolac Tromethamine 15 mg 11/05/19 18:00 11/06/19 11:56 Toradol IVP 11/10/19 18:01 15 mg Q6HR LUIZA Administration - Exam General Appearance: NAD, awake alert Heart: RRR, no murmur, no gallops, no rubs, normal peripheral pulses Respiratory - other findings: Left basilar rales. Chest tube in place. Gastrointestinal: soft, non-tender, non-distended, normal bowel sounds, no palpable masses, no hepatomegaly, no splenomegaly, no bruit Extremities: no cyanosis, no clubbing, no edema Skin: normal turgor Musculoskeletal: normal tone, normal strength, no muscle wasting Psychiatric: normal affect, normal behavior, A&O x 3 Hosp A/P (1) Empyema Code(s): J86.9 - PYOTHORAX WITHOUT FISTULA Status: Acute (2) Transaminitis Code(s): R74.0 - NONSPEC ELEV OF LEVELS OF TRANSAMNS & LACTIC ACID DEHYDRGNSE Status: Acute - Plan Doesn't talk much. Status post thoracotomy for empyema. Has gram negative rods in pleural fluid. Nothing detailed yet. Zosyn and Flagyl. Abd US negative. Continue IV abx, chest drain.
[2019-11-06] MEDS: Gabapentin 300 MG CAP PO SCH (19:58)
[2019-11-06] MEDS: fentaNYL Citrate/PF 2,000 MCG in Sodium Chloride 0.9% 60 ML IV PRN (19:58)
[2019-11-07] MEDS: Piperacillin/Tazobactam 4.5 GM in Sodium Chloride 0.9% 100 ML IVPB SCH ×4 (05:38→23:38)
[2019-11-07] MEDS: Ketorolac Tromethamine 30 MG/ML VIAL IVP SCH ×4 (05:39→23:37)
[2019-11-07 06:21] LABS: #Basophils 0.1 thou/uL (0.0-0.2); #Eosinphils 0.3 thou/uL (0.0-0.7); #Lymphocytes 1.6 thou/uL (1.20-3.40); #Monocytes 0.7 thou/uL (0.11-0.59); #Neutrophils 6.1 thou/uL (1.40-6.50); %Basophils 0.9 % (0.0-1.0); %Eosinophils 3.2 % (0.0-10.0); %Lymphocytes 18.7 % (21.0-51.0); %Monocytes 7.7 % (0.0-10.0); %Neutrophils 69.6 % (42.0-75.0); Hemoglobin 10.3 g/dL (14.0-18.0); Mean Corpuscular HGB CONC 31.7 g/dL (32.0-36.0); Mean Corpuscular Hemoglobin 28.4 pg (27.0-31.0); Mean Corpuscular Volume 89.8 fL (78.0-98.0); Mean Platelet Volume 6.8 fL (7.4-10.4); Platelet Count 444 thou/uL (130-400); RBC Distribution Width 12.4 % (11.5-14.5); Red Blood Cell (RBC) Count 3.62 mill/uL (4.70-6.10); White Blood Cell (WBC) Count 8.8 thou/uL (4.8-10.8)
--- NOTE | 2019-11-07 06:39 | PDOC.GSPN ---
Surgery Progress Note: Subj - Subjective Patient reports: no new complaints, feels better, pain well controlled Narrative: Interview limited by language barrier. 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 Surgery Progress Note: Obj - Vital signs Vital signs: Vital Signs - Most Recent Temp Pulse Resp BP Pulse Ox 98.1 F 94 16 110/64 97 11/06/19 23:52 11/06/19 23:52 11/06/19 23:52 11/06/19 23:52 11/06/19 23:52 - Physical Exam General: well developed, well nourished Cardiovascular: regular rate and rhythm, no murmur Respiratory: breath sounds present Surgery Progress Note: Results - Labs Result Diagrams: 11/07/19 06:09 11/05/19 03:19 Lab results: Laboratory Results - last 24 hr 11/07/19 06:09 WBC 8.8 RBC 3.62 L Hgb 10.3 L Hct 32.5 L MCV 89.8 MCH 28.4 MCHC 31.7 L RDW 12.4 Plt Count 444 H MPV 6.8 L Neutrophils % 69.6 Lymphocytes % 18.7 L Monocytes % 7.7 Eosinophils % 3.2 Basophils % 0.9 Neutrophils # 6.1 Lymphocytes # 1.6 Monocytes # 0.7 H Eosinophils # 0.3 Basophils # 0.1 Surgery Progress Note: A/P - Problem (1) Empyema Current Visit: Yes Code(s): J86.9 - PYOTHORAX WITHOUT FISTULA Status: Acute Assessment and Plan: Patient appears to be improving and in stable condition. - Plan Plan: Continue current medications.
[2019-11-07 06:44] LABS: ALT (SGPT) 28 U/L (8-55); AST (SGOT) 16 U/L (5-34); Albumin 2.5 g/dL (3.5-5.0); Alkaline Phosphatase 197 U/L (40-110); Anion Gap 9 mmol/L (10-20); BUN (Urea Nitrogen) 7 mg/dL (8.9-20.6); Bilirubin, Total 0.5 mg/dL (0.2-1.2); Calc. Creatinine Clearance 181 mL/min (70-130); Calcium 7.9 mg/dL (7.8-10.44); Carbon Dioxide 29 mmol/L (22-29); Chloride 104 mmol/L (98-107); Estimated GFR-MDRD Greater than 90; Globulin 3.3 g/dL (2.4-3.5); Glucose 96 mg/dL (70-105); Potassium 3.5 mmol/L (3.5-5.1); Protein, Total 5.8 g/dL (6.0-8.3); Sodium 138 mmol/L (136-145)
[2019-11-07] MEDS: Polyethylene Glycol 3350 17 GM Packet PO SCH (08:31)
[2019-11-07] MEDS: Famotidine 20 MG TAB PO SCH ×2 (08:31→20:43)
[2019-11-07] MEDS: Gabapentin 300 MG CAP PO SCH ×2 (08:31→20:44)
[2019-11-07] MEDS: Enoxaparin Sodium 40 MG/0.4 ML SYRINGE SC SCH (08:32)
[2019-11-07] MEDS: fentaNYL Citrate/PF 2,000 MCG in Sodium Chloride 0.9% 60 ML IV PRN (08:45)
--- NOTE | 2019-11-07 08:54 | PRG ---
DATE OF SERVICE: 11/07/2019 SUBJECTIVE: This morning, he is better. OBJECTIVE: VITAL SIGNS: Temperature 98, pulse 70, respiratory rate 14, saturations are 99% on 2 L, blood pressure 100/56. GENERAL: He has shortness of breath and coughing. CHEST: Decreased breath sounds. No wheezing. CARDIAC: Normal S1 and S2. No gallops. ABDOMEN: No masses. LABORATORY DATA: White count is 8000. Lytes are normal. IMPRESSION AND PLAN: Status post decortication of empyema. Cultures, negative. Pain relief. I would continue Zosyn until his chest tubes are still there. Once these removed, switch him over to Augmentin. Continue PT and supportive care. We will follow. Job ID: [id number]
--- NOTE | 2019-11-07 15:48 | PDOC.HOSPP ---
- Subjective Subjective: Doing well. No signif pain. Eating well. - Objective Vital Signs & Weight: Vital Signs (12 hours) Temp Pulse Resp BP Pulse Ox 11/07/19 15:10 98.4 F 94 18 105/61 93 L 11/07/19 10:19 97.7 F 92 18 108/71 93 L 11/07/19 07:26 98.0 F 82 14 104/56 L 97 Weight Weight 187 lb Most Recent Monitor Data Heart Rate from ECG 87 NIBP 103/68 NIBP BP-Mean 79 Respiration from ECG 19 SpO2 97 I&O: 11/06/19 11/07/19 11/08/19 06:59 06:59 06:59 Intake Total 2518 1180 Output Total 1015 1420 Balance 843 -240 Result Diagrams: 11/07/19 06:09 11/07/19 06:09 Hospitalist ROS - Medication Medications: Active Medications Generic Name Dose Route Start Last Admin Trade Name Freq PRN Reason Stop Dose Admin Enoxaparin Sodium 40 mg 11/06/19 09:00 11/07/19 08:32 Lovenox SC 40 mg 0900 LUIZA Administration Famotidine 20 mg 11/04/19 09:00 11/07/19 08:31 Pepcid PO 20 mg BID LUIZA Administration Gabapentin 300 mg 11/06/19 21:00 11/07/19 08:31 Neurontin PO 300 mg BID LUIZA Administration Piperacillin Sod/Tazobactam 100 mls @ 200 mls/hr 11/04/19 18:00 11/07/19 13: 17 Sod 4.5 gm/ Sodium Chloride IVPB 100 mls Q6HR LUIZA Administration Fentanyl Citrate 2,000 mcg/ 100 mls @ 0 mls/hr 11/06/19 16:00 11/07/19 08:45 Sodium Chloride IV 100 mls INF PRN Administration Pain As Directed Ketorolac Tromethamine 15 mg 11/05/19 18:00 11/07/19 13:23 Toradol IVP 11/10/19 18:01 15 mg Q6HR LUIZA Administration Polyethylene Glycol 17 gm 11/07/19 09:00 11/07/19 08:31 Miralax PO 17 gm DAILY LUIZA Administration - Exam General Appearance: NAD, awake alert Neck: supple, symmetric, no JVD, no thyromegaly, no lymphadenopathy, no carotid bruit Heart: RRR, no murmur, no gallops, no rubs, normal peripheral pulses Respiratory: no wheezes Respiratory - other findings: Left basilar rales. Gastrointestinal: soft, non-tender, non-distended, normal bowel sounds, no palpable masses, no hepatomegaly, no splenomegaly, no bruit Extremities: no edema Musculoskeletal: normal tone Psychiatric: normal affect, normal behavior, A&O x 3 Hosp A/P (1) Empyema Code(s): J86.9 - PYOTHORAX WITHOUT FISTULA Status: Acute (2) Transaminitis Code(s): R74.0 - NONSPEC ELEV OF LEVELS OF TRANSAMNS & LACTIC ACID DEHYDRGNSE Status: Acute - Plan Doesn't talk much. Status post thoracotomy for empyema. Has gram negative rods in pleural fluid. Nothing detailed yet from culture. Zosyn and Flagyl. Abd US negative. Continue IV abx, chest drain.
[2019-11-08] MEDS: Piperacillin/Tazobactam 4.5 GM in Sodium Chloride 0.9% 100 ML IVPB SCH ×3 (05:32→17:48)
[2019-11-08] MEDS: Ketorolac Tromethamine 30 MG/ML VIAL IVP SCH ×4 (05:32→23:58)
--- NOTE | 2019-11-08 08:23 | RAD ---
CHEST ONE VIEW: HISTORY: Respiratory insufficiency. COMPARISON: 11/06/2019 FINDINGS: Two left chest tubes in place with some fairly prominent left pleural thickening and/or residual flui d but showing improvement from the prior study. The right lung is clear. IMPRESSION: Stable two left chest tubes with pleural and parenchymal opacity changes in the left chest. Continue short-term followup. POS: [facility]
[2019-11-08] MEDS: Polyethylene Glycol 3350 17 GM Packet PO SCH (09:16)
[2019-11-08] MEDS: Famotidine 20 MG TAB PO SCH ×2 (09:42→20:01)
[2019-11-08] MEDS: Gabapentin 300 MG CAP PO SCH ×2 (09:42→20:01)
[2019-11-08] MEDS: Enoxaparin Sodium 40 MG/0.4 ML SYRINGE SC SCH (09:43)
[2019-11-08] MEDS ORDERED: Acetaminophen 325 MG TAB PO PRN (18:00)
[2019-11-08] MEDS ORDERED: Acetaminophen 650 MG Suppository PR PRN (18:00)
--- NOTE | 2019-11-08 22:56 | PDOC.HOSPP ---
- Subjective Encounter Date: 11/08/19 Encounter Time: 13:00 Subjective: No overnight events. Feels well and has no pain or complaints. Chest tubes removed. - Objective Vital Signs & Weight: Vital Signs (12 hours) Temp Pulse Resp BP Pulse Ox 11/08/19 20:00 98.6 F 76 14 119/76 96 11/08/19 15:02 98.1 F 84 16 118/72 95 Weight Weight 185 lb 9.6 oz Most Recent Monitor Data Heart Rate from ECG 87 NIBP 103/68 NIBP BP-Mean 79 Respiration from ECG 19 SpO2 97 I&O: 11/07/19 11/08/19 11/09/19 06:59 06:59 06:59 Intake Total 1180 1360 Output Total 1420 880 250 Balance -240 480 -250 Result Diagrams: 11/07/19 06:09 11/07/19 06:09 Hospitalist ROS - Review of Systems Constitutional: denies: fever, chills, sweats, weakness, malaise, other Respiratory: reports: cough. denies: dry, shortness of breath, hemoptysis, SOB with excertion, pleuritic pain, sputum, wheezing, other Cardiovascular: denies: chest pain, palpitations, orthopnea, paroxysmal noc. dyspnea, edema, light headedness, other Gastrointestinal: denies: nausea, vomiting, abdominal pain, diarrhea, constipation, melena, hematochezia, other Genitourinary: denies: dysuria, frequency, incontinence, hematuria, retention, other Neurological: denies: weakness, numbness, incoordination, change in speech, confusion, seizures, other - Medication Medications: Active Medications Generic Name Dose Route Start Last Admin Trade Name Freq PRN Reason Stop Dose Admin Enoxaparin Sodium 40 mg 11/06/19 09:00 11/08/19 09:43 Lovenox SC 40 mg 0900 LUIZA Administration Famotidine 20 mg 11/04/19 09:00 11/08/19 20:01 Pepcid PO 20 mg BID LUIZA Administration Gabapentin 300 mg 11/06/19 21:00 11/08/19 20:01 Neurontin PO 300 mg BID LUIZA Administration Piperacillin Sod/Tazobactam 100 mls @ 200 mls/hr 11/04/19 18:00 11/08/19 17: 48 Sod 4.5 gm/ Sodium Chloride IVPB 100 mls Q6HR LUIZA Administration Fentanyl Citrate 2,000 mcg/ 100 mls @ 0 mls/hr 11/06/19 16:00 11/07/19 08:45 Sodium Chloride IV 100 mls INF PRN Administration Pain As Directed Ketorolac Tromethamine 15 mg 11/05/19 18:00 11/08/19 17:49 Toradol IVP 11/10/19 18:01 15 mg Q6HR LUIZA Administration Polyethylene Glycol 17 gm 11/07/19 09:00 11/08/19 09:16 Miralax PO Not Given DAILY LUIZA - Exam General Appearance: NAD, awake alert Neck: supple, symmetric, no JVD, no thyromegaly, no lymphadenopathy, no carotid bruit Heart: RRR, no murmur, no gallops, no rubs, normal peripheral pulses Respiratory: CTAB, no wheezes, no ronchi, normal chest expansion, no tachypnea, normal percussion, rales Respiratory - other findings: LLF inspiratory rales; chest tubes removed with dressing over the left thor Gastrointestinal: soft, non-tender, non-distended, normal bowel sounds, no palpable masses, no hepatomegaly, no splenomegaly, no bruit Musculoskeletal: normal tone, normal strength, no muscle wasting Psychiatric: normal affect, normal behavior, A&O x 3 Hosp A/P - Plan #loculated empyema s/p decortication -patient improving clinically; vital signs remain unremarkable -chest tubes removed -pleural fluid culture negative (D4) -has been on zosyn; will transition to augmentin per pulmonology -will continue to monitor and touch base with pulmonology regarding discharge #transaminitis (resolved)
--- NOTE | 2019-11-08 23:12 | PRG ---
DATE OF SERVICE: 11/08/2019 SERVICE: Pulmonary Medicine. INTERVAL HISTORY: The patient is doing fine from respiratory standpoint. He is on room air. Denies any current chest discomfort. He has a little cough. He is bringing up some white phlegm. Outside of that, there has been no change to his condition. PHYSICAL EXAMINATION: VITAL SIGNS: Afebrile, pulse 76, blood pressure 119/76, respirations 14, and saturation 96% on room air. GENERAL: The patient is awake and alert, in no apparent distress. LUNGS: Decent air entry with no prolonged expiratory phase or wheezing present. HEART: Normal rate. Regular. ABDOMEN: Soft, nontender, nondistended. Bowel sounds are positive. MUSCULOSKELETAL: No cyanosis or clubbing. There is no pitting in the bilateral lower extremities. NEUROLOGIC: Grossly nonfocal. LABORATORY DATA: Blood cultures x2. Body fluid culture, and influenza A and B are unremarkable. IMAGING DATA: Chest x-ray demonstrates two left-sided thoracostomy tubes in good position. Elevated left hemidiaphragm is present. Some shallow lung volumes otherwise are present. ASSESSMENT: 1. Empyema, status post decortication. 2. Obstructive sleep apnea, suspected. DISCUSSION AND PLAN: The patient is doing outstanding from a respiratory standpoint. Once the cultures result, we will be able to get him out of the hospital on appropriate antibiotics. We will need to cover whatever is identified in addition to anaerobic organisms. Pulmonary will follow, intermittently during the hospital stay. If there are any questions for the duration of this weekend, please give me a phone call. Job ID: [id number]
[2019-11-09] MEDS: Ketorolac Tromethamine 30 MG/ML VIAL IVP SCH ×4 (05:22→23:48)
[2019-11-09 05:37] LABS: #Basophils 0.1 thou/uL (0.0-0.2); #Eosinphils 0.4 thou/uL (0.0-0.7); #Lymphocytes 1.9 thou/uL (1.20-3.40); #Monocytes 0.8 thou/uL (0.11-0.59); #Neutrophils 6.3 thou/uL (1.40-6.50); %Basophils 0.6 % (0.0-1.0); %Eosinophils 4.7 % (0.0-10.0); %Lymphocytes 20.2 % (21.0-51.0); %Monocytes 8.3 % (0.0-10.0); %Neutrophils 66.2 % (42.0-75.0); Hemoglobin 11.3 g/dL (14.0-18.0); Mean Corpuscular HGB CONC 30.5 g/dL (32.0-36.0); Mean Corpuscular Hemoglobin 26.7 pg (27.0-31.0); Mean Corpuscular Volume 87.7 fL (78.0-98.0); Mean Platelet Volume 6.7 fL (7.4-10.4); Platelet Count 557 thou/uL (130-400); RBC Distribution Width 12.7 % (11.5-14.5); Red Blood Cell (RBC) Count 4.23 mill/uL (4.70-6.10); White Blood Cell (WBC) Count 9.5 thou/uL (4.8-10.8)
[2019-11-09 05:56] LABS: Anion Gap 13 mmol/L (10-20); BUN (Urea Nitrogen) 8 mg/dL (8.9-20.6); Calc. Creatinine Clearance 168 mL/min (70-130); Calcium 8.6 mg/dL (7.8-10.44); Carbon Dioxide 27 mmol/L (22-29); Chloride 103 mmol/L (98-107); Estimated GFR-MDRD Greater than 90; Glucose 96 mg/dL (70-105); Magnesium 2.1 mg/dL (1.6-2.6); Potassium 3.8 mmol/L (3.5-5.1); Sodium 139 mmol/L (136-145)
[2019-11-09] MEDS: Polyethylene Glycol 3350 17 GM Packet PO SCH (08:45)
[2019-11-09] MEDS: Famotidine 20 MG TAB PO SCH ×2 (08:45→20:31)
[2019-11-09] MEDS: Enoxaparin Sodium 40 MG/0.4 ML SYRINGE SC SCH (08:45)
[2019-11-09] MEDS: Gabapentin 300 MG CAP PO SCH ×2 (08:45→20:32)
--- NOTE | 2019-11-09 08:46 | RAD ---
PORTABLE CHEST ONE VIEW: HISTORY: Respiratory insufficiency. COMPARISON: 11/08/2019 FINDINGS: The two previously noted left chest tubes have been removed. There is persistent pleural thickening w ith some patchy parenchymal changes. Mild linear changes in the right base, stable. IMPRESSION: 1. Removal of the two left chest tubes. 2. Stable pleural and parenchymal opacity changes. 3. No significant pneumothorax. POS: [facility]
[2019-11-09] MEDS ORDERED: Amoxicillin/Potassium Clav 875 MG TAB PO SCH (09:00)
[2019-11-09] MEDS ORDERED: Piperacillin/Tazobactam 3.375 GM in Sodium Chloride 0.9% 100 ML IVPB SCH (18:00)
--- NOTE | 2019-11-09 18:57 | PDOC.HOSPP ---
- Subjective Encounter Date: 11/09/19 Encounter Time: 13:00 Subjective: no overnight events. This afternoon, feels well and breathing well on RA. has no complaints. - Objective Vital Signs & Weight: Vital Signs (12 hours) Temp Pulse Resp BP Pulse Ox 11/09/19 15:11 98.4 F 78 18 104/67 96 11/09/19 11:45 98.3 F 78 16 106/65 95 11/09/19 08:00 95 11/09/19 07:53 98.0 F 77 18 107/66 95 11/09/19 07:00 98.0 F 77 18 107/66 95 Weight Weight 178 lb 9 oz Most Recent Monitor Data Heart Rate from ECG 87 NIBP 103/68 NIBP BP-Mean 79 Respiration from ECG 19 SpO2 97 I&O: 11/08/19 11/09/19 11/10/19 06:59 06:59 06:59 Intake Total 1360 240 Output Total 880 250 Balance 480 -10 Result Diagrams: 11/09/19 05:18 11/09/19 05:18 Hospitalist ROS - Review of Systems Constitutional: denies: fever, chills, sweats, weakness, malaise, other Respiratory: denies: cough, dry, shortness of breath, hemoptysis, SOB with excertion, pleuritic pain, sputum, wheezing, other Cardiovascular: denies: chest pain, palpitations, orthopnea, paroxysmal noc. dyspnea, edema, light headedness, other Gastrointestinal: denies: nausea, vomiting, abdominal pain, diarrhea, constipation, melena, hematochezia, other Genitourinary: denies: dysuria, frequency, incontinence, hematuria, retention, other - Medication Medications: Active Medications Generic Name Dose Route Start Last Admin Trade Name Freq PRN Reason Stop Dose Admin Enoxaparin Sodium 40 mg 11/06/19 09:00 11/09/19 08:45 Lovenox SC 40 mg 0900 LUIZA Administration Famotidine 20 mg 11/04/19 09:00 11/09/19 08:45 Pepcid PO 20 mg BID LUIZA Administration Gabapentin 300 mg 11/06/19 21:00 11/09/19 08:45 Neurontin PO 300 mg BID LUIZA Administration Fentanyl Citrate 2,000 mcg/ 100 mls @ 0 mls/hr 11/06/19 16:00 11/07/19 08:45 Sodium Chloride IV 100 mls INF PRN Administration Pain As Directed Ketorolac Tromethamine 15 mg 11/05/19 18:00 11/09/19 17:35 Toradol IVP 11/10/19 18:01 15 mg Q6HR LUIZA Administration Polyethylene Glycol 17 gm 11/07/19 09:00 11/09/19 08:45 Miralax PO 17 gm DAILY LUIZA Administration - Exam General Appearance: NAD, awake alert Heart: RRR, no murmur, no gallops, no rubs, normal peripheral pulses Respiratory: CTAB, no wheezes, no rales, no ronchi, normal chest expansion, no tachypnea, normal percussion Respiratory - other findings: dressing over left lateral thorax c/d/i Gastrointestinal: soft, non-tender, non-distended, normal bowel sounds, no palpable masses, no hepatomegaly, no splenomegaly, no bruit Psychiatric: normal affect, normal behavior, A&O x 3 Hosp A/P - Plan #loculated empyema s/p decortication -patient improving clinically; vital signs remain unremarkable -chest tubes removed -pleural fluid culture negative (D4) -has been on zosyn; pleural final Cx provetella intermedia, lactamase poitive; will transition to augmentin for total treament of 4 weeks and f/u with ID as outpatient -pending discharge (11/10) #transaminitis (resolved)
[2019-11-09] MEDS: Amoxicillin/Potassium Clav 875 MG TAB PO SCH (20:31)
[2019-11-10] MEDS: Ketorolac Tromethamine 30 MG/ML VIAL IVP SCH ×2 (06:49→13:30)
--- NOTE | 2019-11-10 08:00 | RAD ---
RADIOGRAPH CHEST 1 VIEW: DATE: 11/10/2019 TIME: 4:13 AM HISTORY: 29-year-old male with loculated pleural effusion. COMPARISON: 11/09/2019 4:46 AM FINDINGS: The left lateral loculated pleural effusion that reaches the upper lung field remains unchanged. Mild pulmonary parenchymal densities in the mid, and more severe pulmonary densities at the left lower, lung zones, remain. They have not changed, allowing for positional differences. No pneumothorax or pu lmonary edema. Right lung is clear. No interval change overall. IMPRESSION: 1. Loculated left pleural effusion (empyema?). 2. Pulmonary densities in the left mid and lower lung zones. 3. No interval change.
[2019-11-10] MEDS: Amoxicillin/Potassium Clav 875 MG TAB PO SCH (08:33)
[2019-11-10] MEDS: Famotidine 20 MG TAB PO SCH (08:33)
[2019-11-10] MEDS: Enoxaparin Sodium 40 MG/0.4 ML SYRINGE SC SCH (08:34)
[2019-11-10] MEDS: Polyethylene Glycol 3350 17 GM Packet PO SCH (08:34)
[2019-11-10] MEDS: Gabapentin 300 MG CAP PO SCH (08:34)
--- NOTE | 2019-11-10 11:03 | PRG ---
DATE OF SERVICE: 11/10/2019 SUBJECTIVE: A 29-year-old gentleman, this morning, is awake, alert, and responsive. No pain. OBJECTIVE: VITAL SIGNS: Temperature 98, pulse 76, respiratory rate 18, saturations 99% on room air, and blood pressure 109/71. CHEST: Decreased breath sounds, left lung. CARDIAC: Normal S1 and S2. No gallops. ABDOMEN: No masses. ASSESSMENT: Left-sided empyema, decortication, and disposition home. PLAN: Plan to be discharged home any time on Augmentin. Follow up in the office in about two weeks. Job ID: [id number]
[2019-11-10 15:15] VITALS: BP 112/72; TEMP 98.1
--- NOTE | 2019-11-11 14:50 | DIS ---
DATE OF ADMISSION: 11/03/2019 DATE OF DISCHARGE: 11/10/2019 HOSPITAL COURSE: Mr. Penn is a 29-year-old male with no medical history, who presented with shortness of breath. Three weeks prior to presentation, he presented with left flank pain and was found to have left lower lobe pneumonia. He was given a course of antibiotics and discharged. However, his symptoms have not resolved and he developed progressively with progressive shortness of breath. CT scan showed loculated effusion and thoracentesis was done. The patient was diagnosed with loculated empyema and required decortication after which antibiotics were continued and the patient responded well. Fluid culture grew Prevotella intermedia and after susceptibilities returned, the patient's antibiotics were changed from IV to p.o. Augmentin. Prior to discharge, the patient had an extensive education with a quality assurance/r&d lab technician in which he was given instructions regarding what to do about the chest tube wounds, as well as self-administering antibiotics. On the day of discharge , the patient was hemodynamically stable and had no complaints. Vital signs were unremarkable. PHYSICAL EXAMINATION: GENERAL APPEARANCE: No apparent distress. Awake and alert. HEART: Regular rate and rhythm. No murmur. No gallops. No rubs. Normal peripheral pulses. RESPIRATORY: Clear to auscultation on the right, mildly low breath sounds throughout on the left. No wheezes, no rales, no rhonchi. Normal chest expansion. No tachypnea. Left chest tube wound is sutured and appears noninfected with overlying dressing with minimal dry blood. GASTROINTESTINAL: Soft, nontender, and nondistended. Normal bowel sounds. No palpable masses. PSYCHIATRIC: Normal affect. Normal behavior. Alert and oriented x3. ASSESSMENT AND PLAN: Mr. Penn is a 29-year-old with no previous medical history, presented with shortness of breath due to nonresolving community-acquired pneumonia resulting in a loculated empyema. He underwent decortication and was deescalated to p.o. antibiotics based on culture results. Prior to discharge, he was hemodynamically stable. He was discharged on antibiotics for a total treatment of four weeks with followup appointments with Infectious Disease, as well as his primary care physician. Job ID: [id number] [facility]
--- NOTE | 2019-11-12 05:24 | PQF ---
[employer] Crystal Reports Winform ViewerBERNICE RÍOSDANE SANDRA [id number] CLINICAL DOCUMENTATION CLARIFICATION FORM: POST DISCHARGE Addendum to original discharge summary date: ____ Late entry note date: __ DATE: 11/12/2019 ATTN:SANDRA FLORES Please exercise your independent, professional judgment in responding to the clarification form. Clinical indicators are provided on the bottom of this form for your review Please check appropriate box(s) to clarify if the following diagnosis has been ruled in or ruled out: ___SEPSIS (CDI/Coding list diagnosis here) [ ] Ruled in diagnosis [ ] Continue to treat [ ] Resolved [x ] Ruled out diagnosis [ ] Cannot rule out diagnosis [ ] Other diagnosis [ ] Unable to determine In addition, please specify: Present on Admission (POA): [ ] Yes [x ] No [ ] Unable to determine For continuity of documentation, please document condition throughout progress notes and discharge summary. Thank You. CLINICAL INDICATORS - SIGNS / SYMPTOMS / LABS Loculated empyema - Documented in H&P on 11/03 by Isaiah Rodriguez Elevated WBC 17.7 on 11/03 , 13.1 on 11/04 and 13.8 on 11/05 - Documented in Laboratory Pulse rate 125 on 11/03 - Documented in ED report pg#2 Respiration rate 21 on 11/03 - Documented in ED report pg#2 Temperature 103.0 - Documented in ED report pg#2 Blood Pressure 104/56 on 11/07 - Documented in Vital Signs RISK FACTORS Pneumonia - Documented in DS on 11/10 by SANDRA FLORES Empyema with Lung decortication - OP note HTN TREATMENTS He received Rocephin and Azithromycin - Documented in H&P on 11/03 by Isaiah Rodriguez [employer] Reports Winform Viewer (This form is maintained as a part of the permanent medical record) 2014 [employer] All Rights Reserved [email or web address] [phone] [email or web address]
== END 2019-11-10 15:13 | disposition home or self-care (01) | DRG 163 ==
LOC: ERS 15:02 → SURG A 23:33 → CCU 11-04 15:52 → SJJU 11-06 16:10
PROVIDERS: ADMIT Emergency Medicine; ATTEND Emergency Medicine
PROC: 0BNL0ZZ Release Left Lung, Open Approach (ICD-10-PCS; principal; 2019-11-04)
PROC: 0BJL4ZZ Inspection of Left Lung, Percutaneous Endoscopic Approach (ICD-10-PCS; 2019-11-04)
DX: J86.9 Pyothorax without fistula (principal); J18.9 Pneumonia, unspecified organism; J90 Pleural effusion, not elsewhere classified; Z53.32 Thoracoscopic surgical procedure converted to open procedure; R79.89 Other specified abnormal findings of blood chemistry; I10 Essential (primary) hypertension; E11.9 Type 2 diabetes mellitus without complications; R74.0 Nonspecific elevation of levels of transaminase and lactic acid dehydrogenase [LDH]; G47.33 Obstructive sleep apnea (adult) (pediatric)
CPT/HCPCS: 36415; 71045; 71260; 76705; 80048; 80053; 83605; 83735; 85025; 86850; 86900; 86901; 87040; 87070; 87076; 87205; 87804; 96361; 96365; 96367; J0456; J0696; J1100; J1170; J1650; J1885; J2001; J2405; J2543; J2704; J3010; J3490; Q9967